=== PATIENT | female | born 1945 | race Caucasian/White ===

== ENCOUNTER 2018-11-28 09:09 | Emergency (ER) | payer MEDICARE ==
[2018-11-28 09:23] VITALS: BP 159/80; PULSE 89; RESP 18; TEMP 98.6
[2018-11-28] MEDS ORDERED: predniSONE 50 MG TAB PO STA (09:57)
--- NOTE | 2018-11-28 10:08 | ED ---
Skin/Abscess/FB HPI - General Chief complaint: Skin/Abscess/Foreign Body Stated complaint: Spider bite Time Seen by Provider: 11/28/18 09:34 Source: patient, RN notes reviewed Mode of arrival: ambulatory Limitations: no limitations - History of Present Illness Initial comments: This is a 73-year-old female who presents with complaints of a rash over her legs some chest and buttock. She states started several days ago with respect to the buttock rash he states he other rash started this morning she has been working out in the yard at her [facility]. She took some Benadryl and did help a little bit she states it was itchy she denies any fevers chills nausea vomiting sweats or other symptoms at this time MD complaint: rash - Related Data Home Medications Medication Instructions Recorded Confirmed Activella 10 mg PO DAILY 11/28/18 11/28/18 Bifidobacterium Infantis [Align] 4 mg PO DAILY@1200 11/28/18 11/28/18 Levothyroxine Sodium [Synthroid] 50 mcg PO ENCINAS 11/28/18 11/28/18 Levothyroxine Sodium [Synthroid] 100 mcg PO [id number] 11/28/18 11/28/18 Omeprazole [PriLOSEC] 10 mg PO DAILY 11/28/18 11/28/18 Previous Rx's Medication Instructions Recorded predniSONE 20 mg PO BID #10 tab 11/28/18 Allergies Allergy/AdvReac Type Severity Reaction Status Date / Time famotidine [From Pepcid] Allergy Anaphylaxis Verified 11/28/18 09:32 gum mastic Allergy Anaphylaxis Verified 11/28/18 09:32 Sulfa (Sulfonamide Allergy Anaphylaxis Verified 11/28/18 09:32 Antibiotics) tree nut Allergy Anaphylaxis Verified 11/28/18 09:32 Review of Systems ROS Statement: Those systems with pertinent positive or pertinent negative responses have been documented in the HPI. ROS Other: All systems not noted in ROS Statement are negative. Past Medical History Past Medical History: Asthma, Thyroid Disorder Additional Past Medical History / Comment(s): arthritis History of Any Multi-Drug Resistant Organisms: None Reported Past Surgical History: Cholecystectomy Additional Past Surgical History / Comment(s): sinus surgery Past Psychological History: No Psychological Hx Reported Smoking Status: Never smoker Past Alcohol Use History: Occasional Past Drug Use History: None Reported General Exam - General Exam Comments Initial Comments: This is a well-developed well-nourished awake alert oriented x 3 female Limitations: no limitations General appearance: alert, in no apparent distress Head exam: Present: atraumatic, normocephalic, normal inspection Eye exam: Present: normal appearance, PERRL, EOMI. Absent: scleral icterus, conjunctival injection, periorbital swelling ENT exam: Present: normal exam, mucous membranes moist Neck exam: Present: normal inspection, other (No stridor JVD or bruits). Absent: tenderness, meningismus, lymphadenopathy Respiratory exam: Present: normal lung sounds bilaterally. Absent: respiratory distress, wheezes, rales, rhonchi, stridor Cardiovascular Exam: Present: regular rate, normal rhythm, normal heart sounds. Absent: systolic murmur, diastolic murmur, rubs, gallop, clicks Extremities exam: Present: full ROM, normal capillary refill. Absent: tenderness Back exam: Present: full ROM, other (Like kyphosis). Absent: tenderness Neurological exam: Present: alert, oriented X3, CN II-XII intact Psychiatric exam: Present: normal affect, normal mood Skin exam: Present: warm, dry, intact, rash (Areas of erythema noted on the anterior legs and knee area as well as some on the chest wall but consistently contact.) Course Vital Signs 11/28/18 09:20 Temperature 98.6 F Pulse Rate 89 Respiratory 18 Rate Blood Pressure 159/80 O2 Sat by Pulse 96 Oximetry Medical Decision Making - Medical Decision Making I did discuss findings with the patient the presentation consistent with a contact dermatitis she states she cannot take histamine 2 blockers as she can take H1 messi she will be placed on a short course of steroids she was cautioned about heat exposure. Disposition Clinical Impression: Contact dermatitis Disposition: HOME SELF-CARE Condition: Good Instructions (If sedation given, give patient instructions): Contact Dermatitis (ED) Prescriptions: predniSONE 20 mg PO BID #10 tab Is patient prescribed a controlled substance at d/c from ED?: No Referrals: Dmitri Cool MD [Primary Care Provider] - 1-2 days
== END 2018-11-28 10:18 | disposition home or self-care (01) ==
LOC: EC 09:09
DX: L25.9 Unspecified contact dermatitis, unspecified cause (principal); E07.9 Disorder of thyroid, unspecified; Z88.2 Allergy status to sulfonamides; Z88.8 Allergy status to other drugs, medicaments and biological substances; Z91.018 Allergy to other foods; Z91.048 Other nonmedicinal substance allergy status; Z79.890 Hormone replacement therapy; Z79.899 Other long term (current) drug therapy
CPT/HCPCS: 99282; J7512